=== PATIENT | female | born 1935 | race Hispanic/Latino ===

== ENCOUNTER → 2022-10-13 | Outpatient (CLI) | payer MEDICARE | END | disposition home or self-care (01) | LOC: SHCH 11:20 | PROVIDERS: ATTEND Student in an Organized Health Care Education/Training Program | DX: I08.8 Other rheumatic multiple valve diseases (principal); I11.9 Hypertensive heart disease without heart failure; E78.5 Hyperlipidemia, unspecified | CPT/HCPCS: 93306 ==

== ENCOUNTER 2023-08-28 16:45 | Emergency (ER) | payer MEDICARE ==
[~2023-08-28] VITALS: Ht 152.4 cm; Wt 59.0 kg
[2023-08-28 16:48] VITALS: BP 158/47; PULSE 59; RESP 12
[2023-08-28] MEDS: TRAMADOL HCL 50 MG TABLET PO ONE (18:24)
[2023-08-28] MEDS: KETOROLAC 30MG VIAL (30MG/ML) IM ONE (19:56)
[2023-08-28] MEDS ORDERED: NALO4SPR3 NS (20:43)
[2023-08-28] MEDS ORDERED: TRAM50TA4 PO ×2 (20:43→20:46)
== END 2023-08-28 21:07 | disposition home or self-care (01) ==
LOC: EDH 16:45
DX: S50.01XA Contusion of right elbow, initial encounter (principal); R10.9 Unspecified abdominal pain; I10 Essential (primary) hypertension; Z90.49 Acquired absence of other specified parts of digestive tract; Z90.710 Acquired absence of both cervix and uterus; W18.39XA Other fall on same level, initial encounter; Y93.89 Activity, other specified; Y92.89 Other specified places as the place of occurrence of the external cause; Y99.8 Other external cause status
CPT/HCPCS: 99283; 96372; J1885